=== PATIENT | female | born 1955 | race American Indian/Alaskan Native ===

== ENCOUNTER 2017-02-15 13:53 | Outpatient (CLI) | payer BC ==
--- NOTE | 2017-02-15 15:12 | Mammography Report ---
BILATERAL MAMMOGRAM with CAD: HISTORY: Cancer screening. No prior studies are available. FINDINGS: There are scattered fibroglandular densities (approximately 25%-50% glandular). No mass, distortion, suspicious calcification, or skin change is seen. IMPRESSION: Negative mammogram. There is no mammographic evidence of malignancy. RECOMMENDATION: Follow-up per ACS guidelines. BI-RADS CATEGORY: 1 = Negative ACR BI-RADS MAMMOGRAPHIC CODES: 0 = Needs additional imaging evaluation; 1 = Negative; 2 = Benign; 3 = Probably benign; 4 = Suspicious; 5 = Malignant; 6 = Known biopsy-proven malignancy COMMENT: 1. Dense breast tissue, i.e., adenosis, fibrocystic changes, etc., may obscure an underlying neoplasm. 2. Approximately 10% of cancers are not detected with mammography. 3. A negative mammography report should not delay biopsy if a clinically suspicious mass is present. COMMENT: Patient follow-up letters are generated in [employer].
== END 2017-02-15 13:54 | disposition home or self-care (01) ==
LOC: MAMMO 13:53
PROVIDERS: ATTEND Internal Medicine
DX: Z12.31 Encounter for screening mammogram for malignant neoplasm of breast (principal)
CPT/HCPCS: 77067; G0202

== ENCOUNTER 2018-02-11 14:48 | Emergency (ER) | payer BC ==
--- NOTE | 2018-02-11 17:01 | Emergency Department Report ---
ED Fall HPI - General Chief Complaint: Fall Stated Complaint: HIP PAIN Time Seen by Provider: 02/11/18 17:00 Source: patient Mode of arrival: Wheelchair - History of Present Illness Initial Comments: 62-year-old female past medical history hypertension, asthma presents with complaint of right hip pain radiating to the right upper thigh status post mechanical fall while walking down steps. Patient states that while walking down steps at home she misstepped and fell onto her right side buttocks. States that she bounced down 3 steps and hit the back of her head. Denies any loss of consciousness. States she has severe pain in her right hip and had difficulty standing up. Patient was assisted by her mother who was with her at the time. No loss of consciousness or lacerations reported. Patient states the pain is sharp and in her right side hip just below her lower back. Denies bladder or bowel incontinence. States the fall occurred 2-3 hours ago. Patient is awake alert and oriented and able to provide a detailed history. Denies headache at this time, denies blurry vision, denies abdominal pain nausea chest pain shortness of breath or rib or chest wall pain. Patient accompanied by her mother at bedside. BIBEMS. CRISTOBAL Complaint: fall -: This afternoon Fall From: down stairs (#) (3) When Fall Occurred: 1-3 hours [employer] AD[employer] Fall Witnessed: yes, by family Place Fall Occurred: home Loss of Consciousness: none Prolonged Down Time?: no Symptoms Prior to Fall: none Location - Extremities: Right: Thigh (right hip) Severity: moderate Severity scale (0 -10): 7 Quality: sharp, aching Context: tripped/slipped Associated Symptoms: denies - Related Data Home Medications Medication Instructions Recorded Confirmed Last Taken Aspirin [Aspirin BABY CHEW TAB] 81 mg PO QDAY 08/19/14 08/19/14 08/18/14 Brimonidine Tartrate [Alphagan P 1 drop OTIC BID 08/19/14 08/19/14 08/18/14 0.1%] Metoprolol Xl [Metoprolol 50 mg PO QHS 08/19/14 08/19/14 08/17/14 SUCCINATE ER TAB] Triamterene/Hydrochlorothiazid 1 tab PO 4XD 08/19/14 08/19/14 08/18/14 [Triamterene-Hctz 37.5-25 mg] Previous Rx's Medication Instructions Recorded Last Taken Type Acetaminophen [Acetaminophen TAB] 500 mg PO Q6HR PRN #20 tablet 02/11/18 Unknown Rx Acetaminophen/Codeine [Tylenol 1 tab PO Q6H PRN #4 tab 02/11/18 Unknown Rx /Codeine # 3 tab] Allergies Allergy/AdvReac Type Severity Reaction Status Date / Time No Known Allergies Allergy Verified 08/19/14 06:29 ED Review of Systems ROS: Stated complaint: HIP PAIN Other details as noted in HPI Constitutional: denies: chills, fever Eyes: denies: eye pain, eye discharge, vision change ENT: denies: ear pain, throat pain Respiratory: denies: cough, shortness of breath, wheezing Cardiovascular: denies: chest pain, palpitations Endocrine: no symptoms reported Gastrointestinal: denies: abdominal pain, nausea, diarrhea Genitourinary: denies: urgency, dysuria, discharge Musculoskeletal: as per HPI. denies: back pain, joint swelling, arthralgia Skin: denies: rash, lesions Neurological: denies: headache, weakness, paresthesias Psychiatric: denies: anxiety, depression Hematological/Lymphatic: denies: easy bleeding, easy bruising ED Past Medical Hx - Past Medical History Previous Medical History?: Yes Hx Hypertension: Yes Hx Asthma: Yes - Surgical History Past Surgical History?: No - Social History Smoking Status: Never Smoker Substance Use Type: None - Medications Home Medications: Home Medications Medication Instructions Recorded Confirmed Last Taken Type Aspirin [Aspirin BABY CHEW TAB] 81 mg PO QDAY 08/19/14 08/19/14 08/18/14 History Brimonidine Tartrate [Alphagan P 1 drop OTIC BID 08/19/14 08/19/14 08/18/14 History 0.1%] Metoprolol Xl [Metoprolol 50 mg PO QHS 08/19/14 08/19/14 08/17/14 History SUCCINATE ER TAB] Triamterene/Hydrochlorothiazid 1 tab PO 4XD 08/19/14 08/19/14 08/18/14 History [Triamterene-Hctz 37.5-25 mg] Acetaminophen [Acetaminophen TAB] 500 mg PO Q6HR PRN #20 tablet 02/11/18 Unknown Rx Acetaminophen/Codeine [Tylenol 1 tab PO Q6H PRN #4 tab 02/11/18 Unknown Rx /Codeine # 3 tab] ED Physical Exam - General Limitations: Physical Limitation General appearance: alert, in no apparent distress - Head Head exam: Present: atraumatic, normocephalic - Eye Eye exam: Present: normal appearance, PERRL, EOMI - ENT ENT exam: Present: mucous membranes moist - Neck Neck exam: Present: normal inspection, full ROM (neck flexion and extension lateral rotation and lateral flexion intact. No midline posterior cervical spine tenderness) - Respiratory Respiratory exam: Present: normal lung sounds bilaterally. Absent: respiratory distress - Cardiovascular Cardiovascular Exam: Present: regular rate, normal rhythm. Absent: systolic murmur, diastolic murmur, rubs, gallop - GI/Abdominal GI/Abdominal exam: Present: soft (abdomen is soft nontender nondistended 4 quadrants), normal bowel sounds - Extremities Exam Extremities exam: Present: normal inspection - Expanded Lower Extremity Exam Right Hip exam: Present: tenderness (H and has tenderness at right iliac crest on palpation) Upper Leg exam: Present: tenderness (tenderness near right hip region on palpation) Knee exam: Present: tenderness - Back Exam Back exam: Present: normal inspection, full ROM (there is no midline cervical thoracic or lumbar spinal tenderness), paraspinal tenderness (some paraspinal L- spine tenderness worse on right than left, no ecchymosis on back or) - Neurological Exam Neurological exam: Present: alert, oriented X3, CN II-XII intact, abnormal gait (slightly antalgic gait patient limping due to right hip pain) - Expanded Neurological Exam Expanded Patient oriented to: Present: person, place, time Cranial nerves: EOM's Intact: Normal, Facial Sensation: Normal Cerebellar function: Finger to Nose: Normal, [place]: Normal Sensory exam: Upper Extremity Light Touch: Normal, Lower Extremity Light Touch: Normal Motor strength exam: RUE: 5, LUE: 5, RLE: 5, LLE: 5 DTR: knee (R): 3+, knee (L): 3+, ankle (R): 3+, ankle (L): 3+ Best Eye Response ([place]): (4) open spontaneously Best Motor Response ([place]): (6) obeys commands Best Verbal Response ([place]): (5) oriented [place] Total: 15 - Psychiatric Psychiatric exam: Present: normal affect, normal mood - Skin Skin exam: Present: warm, dry, intact, normal color. Absent: rash ED Course Vital Signs 02/11/18 02/11/18 15:20 17:35 Temperature 98.1 F Pulse Rate 68 Respiratory 16 16 Rate Blood Pressure 126/62 O2 Sat by Pulse 100 Oximetry ED Medical Decision Making - Medical Decision Making A/P: Hip contusion, mechanical fall 1- pt was able to ambulate when given walker, significant reduction in pain with one dose of [place] 2- extra strength Tylenol when necessary, short course Tylenol 3 3- CTs showed some degenerative changes and L-spine but no hip fractures no intracranial injury. Nexus criteria negative 4- Cranial nerves 2, 3, 4, 5, 6, 7, 8,10, 11, 12 intact on clinical exam, patient is fully lucid awake alert and oriented 3 conversant. Denies any upper or lower extremity paresthesias and has 5/5 strength in bilateral upper and lower extremities on clinical exam. 3- follow-up with primary medical doctor this week 4- patient given precautions, instructed to return to the ED for any confusion, lethargy, chest pain, shortness of breath, abdominal pain, inability to tolerate by mouth, paresthesias, inability to ambulate. 5- pt independently ambulatory with a walker upon discharge Critical care attestation.: If time is entered above; I have spent that time in minutes in the direct care of this critically ill patient, excluding procedure time. ED Disposition Clinical Impression: Fall down stairs Qualifiers: Encounter type: initial encounter Qualified Code(s): W10.8XXA - Fall (on) (from ) other stairs and steps, initial encounter Contusion of hip, right Qualifiers: Encounter type: initial encounter Qualified Code(s): S70.01XA - Contusion of right hip, initial encounter Disposition: TO HOME OR SELFCARE Is pt being admited?: No Does the pt Need Aspirin: No Condition: Stable Instructions: Fall Prevention (ED), Contusion in Adults (ED), Musculoskeletal Pain (ED) Prescriptions: Acetaminophen [Acetaminophen TAB] 500 mg PO Q6HR PRN #20 tablet PRN Reason: Pain Acetaminophen/Codeine [Tylenol /Codeine # 3 tab] 1 tab PO Q6H PRN #4 tab PRN Reason: Pain Referrals: [facility] [Provider Group] - 3-5 Days [facility] [Provider Group] - 3-5 Days Forms: Accompanied Note, Work/School Release Form(ED) Time of Disposition: 20:23
[2018-02-11] MEDS ORDERED: NORCO 10/325 PO ONE (17:16)
[2018-02-11] MEDS ORDERED: ZOFRAN ODT PO ONE (17:16)
--- NOTE | 2018-02-11 18:11 | Cat Scan Report ---
FINAL REPORT EXAM: CT LUMBAR SPINE WO CON HISTORY: lower back pain s/p fall down stairs TECHNIQUE: CT lumbar spine PRIORS: None. FINDINGS: Vertebral bodies demonstrate normal height and alignment. There is disc space narrowing consistent with degenerative disc disease at L2-L3. There is no evidence of spondylolisthesis. Transverse and spinous processes are intact SI joints are unremarkable. IMPRESSION: Degenerative disc disease at L2-L3 No additional abnormality identified
--- NOTE | 2018-02-11 18:17 | Cat Scan Report ---
FINAL REPORT EXAM: CT HEAD/BRAIN WO CON HISTORY: s/p fall hit head, headache TECHNIQUE: CT head without contrast PRIORS: None. FINDINGS: No acute intra-axial or extra-axial hemorrhage is identified. There is no evidence of midline shift or mass effect. The ventricles and sulci are within normal limits. Benitez-white matter differentiation is intact. No acute parenchymal abnormalities seen. Bony calvarium is grossly intact. Visualized portions of the mastoids and paranasal sinuses are unremarkable. IMPRESSION: Negative CT head
--- NOTE | 2018-02-11 18:29 | Cat Scan Report ---
FINAL REPORT EXAM: CT LOWER EXTREMITY RT WO CON HISTORY: s/p fall today right hip pain/lowerbackpain TECHNIQUE: CT of the right hip without contrast multiplanar reconstructions were obtained. PRIORS: None. FINDINGS: There is no evidence for acute fracture. The hip demonstrates normal joint space. No evidence for widening the pubic symphysis or L1-L2. Visualized portion of the right SI joint is unremarkable. No soft tissue mass or fluid collection identified. IMPRESSION: Normal CT of the right hip. No fracture identified
[2018-02-11 20:38] VITALS: BP 128/57
== END 2018-02-11 20:35 | disposition home or self-care (01) ==
LOC: ED 14:48
DX: S70.01XA Contusion of right hip, initial encounter (principal); I10 Essential (primary) hypertension; Z79.82 Long term (current) use of aspirin; W10.9XXA Fall (on) (from) unspecified stairs and steps, initial encounter; Y93.89 Activity, other specified; Y92.89 Other specified places as the place of occurrence of the external cause; Y99.8 Other external cause status
CPT/HCPCS: 70450; 72131; 99283; Q0162